=== PATIENT | male | born 1970 | race African-American/Black ===

== ENCOUNTER 2020-04-13 10:22 | Outpatient (CLI) | payer OTHER | END 2020-04-13 10:23 | disposition home or self-care (01) | LOC: MADRAD 10:22 | PROVIDERS: ATTEND Orthopaedic Surgery | DX: M25.774 Osteophyte, right foot (principal); M77.31 Calcaneal spur, right foot; M19.071 Primary osteoarthritis, right ankle and foot; M79.89 Other specified soft tissue disorders ==

== ENCOUNTER 2022-04-21 14:58 | Emergency (ER) | payer OTHER | END 2022-04-21 15:50 | disposition home or self-care (01) | LOC: MADERS 14:58 | DX: M54.50 Low back pain, unspecified (principal); I10 Essential (primary) hypertension | CPT/HCPCS: 99283 ==